=== PATIENT | male | born 1970 | race Hispanic/Latino ===

== ENCOUNTER 2022-12-27 12:15 | Emergency (ER) | payer OTHER ==
[2022-12-27 13:25] LABS: #Eosinphils 0.1 10x3/uL (0.0-0.5); #Monocytes 0.4 10x3/uL (0.0-1.1); #Neutrophils 9.5 10x3/uL (1.5-8.4); %Basophils 0.4 % (0.0-2.0); %Eosinophils 0.8 % (0.0-6.0); %Lymphocytes 7.3 % (18.0-47.0); %Monocytes 3.4 % (0.0-10.0); %Neutrophils 87.7 % (40.0-75.0); Hemoglobin 15.8 g/dL (13.5-17.5); Mean Corpuscular HGB CONC 34.3 g/dL (32.0-36.0); Mean Corpuscular Volume 90.4 fl (81.2-95.1); Mean Platelet Volume 8.9 fl (7.4-10.4); Platelet Count 253 10x3/uL (150-450); RBC Distribution Width 12.3 % (11.5-14.5); Red Blood Cell (RBC) Count 5.09 10x6/uL (4.32-5.72); White Blood Cell (WBC) Count 10.9 10x3/uL (3.5-10.5)
[2022-12-27 13:34] LABS: Bilirubin Neg (Negative); Blood, Urine 10 (Negative); Clarity Clear (Clear); Glucose, Urine (Dipstick) Normal (Negative); Ketone, Urine Negative (Negative); Leukocyte Negative (Negative); Nitrite Negative (Negative); Protein, Urine (Dipstick) Negative (Neg-Trace); Urobilinogen Normal mg/dL (Less than 2)
[2022-12-27 13:55] LABS: ALT (SGPT) 34 U/L (8-55); AST (SGOT) 29 U/L (5-34); Albumin 4.7 g/dL (3.5-5.0); Alkaline Phosphatase 88 U/L (40-110); Anion Gap 15 mmol/L (10-20); BUN (Urea Nitrogen) 18 mg/dL (8.4-25.7); Bilirubin, Total 0.6 mg/dL (0.2-1.2); Calc. Creatinine Clearance 0 mL/min (70-130); Calcium 9.1 mg/dL (7.8-10.44); Carbon Dioxide 21 mmol/L (22-29); Chloride 105 mmol/L (98-107); Estimated GFR 68; Globulin 2.5 g/dL (2.4-3.5); Glucose 153 mg/dL (70-105); Lipase 18 U/L (8-78); Potassium 4.4 mmol/L (3.5-5.1); Protein, Total 7.2 g/dL (6.0-8.3); Sodium 137 mmol/L (136-145)
[2022-12-27 14:08] LABS: Bacteria/HPF None Seen HPF (None Seen); Squamous Epithelial 0-3 HPF (0-3); WBC/HPF 0-3 HPF (0-3)
[2022-12-27] MEDS ORDERED: Dicyclomine 20 MG TAB ONE (15:36)
[2022-12-27] MEDS ORDERED: Acetaminophen 325 MG TAB ONE (15:37)
[2022-12-27] MEDS ORDERED: Ondansetron ODT 4 MG TAB ONE (15:38)
== END 2022-12-27 15:49 | disposition home or self-care (01) ==
LOC: CSHERS 12:15
DX: R31.9 Hematuria, unspecified (principal); K76.0 Fatty (change of) liver, not elsewhere classified; I10 Essential (primary) hypertension; E11.9 Type 2 diabetes mellitus without complications; E78.5 Hyperlipidemia, unspecified
CPT/HCPCS: 36415; 74176; 80053; 81003; 81015; 83605; 83690; 85025; 87086; Q0162

== ENCOUNTER 2025-05-23 20:07 | Emergency (ER) | payer BC ==
[2025-05-23] MEDS ORDERED: Acetaminophen 500 MG TAB ONE (20:48)
[2025-05-23] MEDS ORDERED: Ketorolac Tromethamine 30 MG (1 mL) VIAL ONE (20:48)
== END 2025-05-23 20:58 | disposition home or self-care (01) ==
LOC: CSHERS 20:07
DX: R51.9 Headache, unspecified (principal); I10 Essential (primary) hypertension; E11.9 Type 2 diabetes mellitus without complications
CPT/HCPCS: 87428; 96372; 99284; J1885

== ENCOUNTER 2025-08-24 14:56 | Outpatient (CLI) | payer OTHER | END 2025-08-24 14:57 | disposition home or self-care (01) | LOC: CSHCP 14:56 | PROVIDERS: ATTEND Chiropractor | DX: N18.2 Chronic kidney disease, stage 2 (mild) (principal); J45.909 Unspecified asthma, uncomplicated | CPT/HCPCS: 71046; 94010; 94760 ==